=== PATIENT | female | born 1995 | race Caucasian/White ===

== ENCOUNTER → 2016-09-08 | Day surgery (SDC) | payer OTHER | END | disposition home or self-care (01) | LOC: FAS 06:54 | DX: D17.1 Benign lipomatous neoplasm of skin and subcutaneous tissue of trunk (principal); Z88.8 Allergy status to other drugs, medicaments and biological substances | CPT/HCPCS: 84703; 88304; J0690; J1100; J1885; J2270; J2704; J2765 ==

== ENCOUNTER 2021-06-26 17:14 | Emergency (ER) | payer OTHER ==
[2021-06-26 21:05] LABS: BASOPHIL 0.5 % (0-2); EOSINOPHIL 1.5 % (0-5); HCT 39.4 % (37.0-47.0); HGB 12.9 g/dl (12.5-16.0); LYMPHOCYTE 37.5 % (15-48); MCH 30.6 pg (25.0-31.0); MCHC 32.7 g/dL (32.0-36.0); MCV 93.6 fL (78.0-100.0); MONOCYTE 9.6 % (0-12); MPV 9.1 fL (6.0-9.5); NEUTROPHIL 50.7 % (41-80); NRBC 0; PLT 306 K/uL (150-400); RBC 4.21 M/uL (4.20-5.40); RDW 12.5 % (11.5-14.0); WBC 8.7 K/uL (4.0-10.5)
[2021-06-26 21:23] LABS: BUN/CREAT RATIO (CALC) 24.6 RATIO; CREATININE 0.57 mg/dL (0.51-0.95); POTASSIUM 3.8 mmol/L (3.5-5.1)
[2021-06-26 21:40] LABS: CORONAVIRUS 2019 SARS-COV-2 NEGATIVE (NEGATIVE); INFLUENZA A NAA NEGATIVE (NEGATIVE)
== END 2021-06-26 22:27 | disposition home or self-care (01) ==
LOC: FER 17:14
PROVIDERS: Nurse Practitioner Family
DX: M94.0 Chondrocostal junction syndrome [Tietze] (principal); Z20.822 Contact with and (suspected) exposure to COVID-19; Z88.6 Allergy status to analgesic agent
CPT/HCPCS: 36415; 71045; 80048; 85025; 85379; J1100; U0002